=== PATIENT | female | born 1980 | race Hispanic/Latino ===

== ENCOUNTER 2017-02-15 12:54 | Emergency (ER) | payer OTHER ==
[~2017-02-15] VITALS: Ht 170.2 cm; Wt 104.3 kg
[~2017-02-15 12:54] MED LIST: HYDROCODONE/ACE1 TA1 PO; LOMOTIL 0.025 M1 TAB PO; NEXIUM 40MG40 MG PO; ZOFRAN ODT4 MG PO; ZOFRAN ODT4 MG SL
[2017-02-15 14:03] LABS: ABSOLUTE BASOPHIL COUNT 0 /CUMM (0.0-0.2); ABSOLUTE EOSINOPHIL COUNT 0.3 /CUMM (0.0-0.7); ABSOLUTE LYMPH COUNT 3.3 /CUMM (1.2-3.4); ABSOLUTE MONOCYTE COUNT 0.7 /CUMM (0.10-0.60); BASOPHIL % 0.3 % (0.0-2.0); EOSINOPHIL % 2.6 % (0-5); GRANULOCYTE % 61.9 % (42.2-75.2); HEMATOCRIT 41.1 % (37-47); MEAN CORPUSCULAR HGB 28.4 PG (27.0-31.0); MEAN CORPUSCULAR HGB CONC 32.8 G/DL (33.0-37.0); MEAN CORPUSCULAR VOLUME 86.5 FL (81.0-99.0); PLATELET COUNT 306 /CUMM (130-400); RBC DISTRIBUTION WIDTH 14.2 % (11.5-14.5); RED BLOOD CELL CT 4.75 /CUMM (4.20-5.40); WHITE BLOOD CELL COUNT 11.3 /CUMM (4.8-10.8)
--- NOTE | 2017-02-15 14:34 | ED CARDIAC/CP/PALPITATIONS ---
History of Present Illness General Chief Complaint: Chest Pain Stated Complaint: CHEST PAIN Source: patient Exam Limitations: no limitations Vital Signs & Intake/Output Vital Signs & Intake/Output Vital Signs Date Time Temp Pulse Resp B/P Pulse O2 O2 Flow FiO2 Ox Delivery Rate 02/15 1606 Room Air 02/15 1556 97.9 64 16 145/76 96 Room Air 02/15 1515 68 16 150/78 02/15 1337 98.0 83 14 160/97 99 Room Air Allergies Coded Allergies: NO KNOWN ALLERGIES (08/13/14) Reconcile Medications DIPHENOXYLATE HCL/ATROPINE (Lomotil 2.5-0.025 MG Tablet) 1 TAB TAB 1 TAB PO FOUR TIMES A DAY DIARRHEA twenty...[id number] Esomeprazole (Nexium) 40 MG CAP 1 CAP PO PRN GI (Reported) HYDROCODONE/ACETAMINOPHEN (Hydrocodon-Acetaminophen 5-325) 5 MG-325 MG TABLET 1 TAB PO TID PAIN Ondansetron (Zofran Odt) 4 MG ODT 1 TAB PO TID PRN NAUSEA Ondansetron (Zofran Odt) 4 MG TAB.RAPDIS 1 TAB SL Q8 NAUSEA Triage Note: PT TO ED FOR INTERMITTENT CHEST PAIN, COUGH AND JAW PAIN SINCE THURSDAY. REPORTING NOTHING MAKES PAIN BETTER OR WORSE, REPORTING ASSOCIATED SOB, N/V. Triage Nurses Notes Reviewed? yes Onset: Abrupt Duration: gone now, intermittent Timing: multiple episodes today Quality/Severity: moderate Location: substernal Radiation: no radiation : No Patient currently breastfeeds: No HPI: Patient is a 36-year-old female with a past medical history of fibromyalgia currently on amitriptyline who presents emergency with a 72 hour history of intermittent heart palpitations and chest pain that states that the symptoms coming go and the onset is paroxysmal in nature with no pattern states that the symptoms are approximately 1-3 seconds in duration and completely resolved. Patient states that after these symptoms resolve she then has a nonproductive coughing episode Patient states that she has approximately 20 events every day for the past 72 hours. Patient denies any fevers chills arm pain jaw pain nausea vomiting leg swelling diaphoresis shortness of breath hemoptysis Denies any history of PE DVT recent travel recent surgery leg swelling or oral contraceptive use. Denies any illicit drug use or smoking or alcohol use (HARRY THOMAS,CAMILLE) Past History Travel History Traveled to [place] past 21 day No Medical History Any Pertinent Medical History? see below for history Neurological: NONE EENT: NONE Cardiovascular: NONE Respiratory: NONE Gastrointestinal: NONE Hepatic: NONE Renal: NONE Musculoskeletal: FIBROMYALGIA Psychiatric: NONE Endocrine: NONE Blood Disorders: NONE SUPPORT ASSOCIATE/Reproductive: NONE Surgical History Surgical History: non-contributory, N Psychosocial History What is your primary language Wolof Tobacco Use: Never used ETOH Use: denies use Illicit Drug Use: denies illicit drug use Family History Hx Contributory? No (CAMILLE WORRELL) Review of Systems Review of Systems Constitutional: Reports: no symptoms. EENTM: Reports: no symptoms. Respiratory: Reports: see HPI, cough. Cardiovascular: Reports: see HPI, chest pain, palpitations. GI: Reports: no symptoms. Genitourinary: Reports: no symptoms. Musculoskeletal: Reports: no symptoms. Skin: Reports: no symptoms. Neurological/Psychological: Reports: no symptoms. Hematologic/Endocrine: Reports: no symptoms. Immunologic/Allergic: Reports: no symptoms. All Other Systems: Reviewed and Negative (CAMILLE WORRELL) Physical Exam Physical Exam General Appearance: no apparent distress, alert, comfortable Cardiovascular: regular rate/rhythm Comments: Well-developed well-nourished person in no acute distress HEENT: Normal EENT exam, extraocular motion intact, no nystagmus. Pupils equally round and reactive to light and accommodation. Nose is atraumatic. External auditory canal and Tympanic membranes clear. Pharynx normal. No swelling or edema. Neck: Supple, no lymphadenopathy, normal range of motion without pain or tenderness Back: Nontender, no CVA tenderness. Cardiovascular: Regular rate and rhythms no murmurs rubs or gallops, normal JVP Respiratory: Chest nontender. No respiratory distress.breath sounds clear to auscultation bilaterally Abdomen: Soft, nontender nondistended, no appreciable organomegaly. Normal bowel sounds. No ascites Extremity: No edema, no calf tenderness to palpation, normal and equal pulses. Neuro: Alert oriented x3, motor sensory normal, Skin: No appreciable rash on exposed skin, skin is warm and dry. Psych: Mood and affect is normal, memory and judgment is normal. Core Measures ACS in differential dx? Yes Severe Sepsis Present: No Septic Shock Present: No (CAMILLE WORRELL) Progress Differential Diagnosis: AMI, aortic dissection, atrial fibrillation, cholecystitis, CHF/pulm edema, costochondritis, hyperkalemia, hypovolemia, hyperthyroid, hyperventilation, intracranial hemorrhage, musculoskeletal pain, myocarditis, pancreatitis, pericarditis, pneumonia, pneumothorax, PSVT, pulmonary embolism, PUD/GERD, PVCs/PACs, respiratory failure, rib fracture, sepsis, unstable angina, V-fib/V-Tach, WPW syndrome Plan of Care: Orders Procedure Date/time Status Add-on Test (ER Only) 02/15 1449 Active Add-on Test (ER Only) 02/15 1445 Active THYROID STIMULATING HORMONE 02/15 1352 Complete THYROXINE 02/15 1352 Complete MAGNESIUM 02/15 1352 Complete HUMAN BETA HCG SCREEN 02/15 1352 Complete TROPONIN LEVEL 02/15 1338 Complete COMPREHENSIVE METABOLIC PANEL 02/15 1338 Complete CBC WITHOUT DIFFERENTIAL 02/158 Complete EKG 02/15 1255 Active Laboratory Tests 02/15/17 1352: Anion Gap 12, Estimated GFR > 60, BUN/Creatinine Ratio 15.0, Glucose 82, Calcium 9.8, Magnesium 1.9, Total Bilirubin 0.5, AST 20, ALT 33, Alkaline Phosphatase 84 , Troponin I < 0.01, Total Protein 7.4, Albumin 4.2, Globulin 3.2, Albumin/ Globulin Ratio 1.3, TSH 1.560, Thyroxine (T4) 9.6, Total Beta HCG NEGATIVE, CBC w Diff NO MAN DIFF REQ, RBC 4.75, MCV 86.5, MCH 28.4, RDW 14.2, MPV 9.0, Gran % 61.9, Lymphocytes % 29.3, Monocytes % 5.9, Eosinophils % 2.6, Basophils % 0.3, Absolute Granulocytes 7.0 H, Absolute Lymphocytes 3.3, Absolute Monocytes 0.7 H, Absolute Eosinophils 0.3, Absolute Basophils 0, PUBS MCHC 32.8 L Patient currently is in no apparent distress. EKG was showing normal sinus rhythm court recording monitor placed showing sinus rhythm between 70 and 80 bpm. Patient does state that she had multiple episodes of palpitations however sinus rhythm was noted every time on the monitor no tachycardia was noted. Patient was PERC negative essentially ruling out pulmonary embolism. Patient has had 3 days of intermittent palpitations and chest pain and troponin was unremarkable. Patient was strongly advised to follow up with cardiology. Upon discharge patient had no symptoms and agreed with disposition plan and had no questions. (CAMILLE WORRELL) Diagnostic Imaging: Viewed by Me: Radiology Read. Radiology Impression: no acute abnormality, no fracture Initial ED EK BPM NORMAL SINUS RHYTHM Prior EKG: unchanged Comments: PATIENT: LAKSHMI NICHOLSON PRESENT AGE: 36 PATIENT ACCOUNT NO: [id number] : 80 LOCATION: [facility] ORDERING PHYSICIAN: CAMILLE THOMAS SERVICE DATE: 02/15/17 EXAM TYPE: RAD - XRY-CHEST XRAY, PA AND LATERAL EXAMINATION: CHEST 2 VIEWS CLINICAL INFORMATION: Chest pain. COMPARISON: No recent pertinent prior studies are available for comparison. TECHNIQUE: PA and lateral views of the chest were obtained. FINDINGS: The lungs are well expanded. No focal infiltrate, effusion, edema, or pneumothorax. Cardiac and mediastinal silhouettes are within normal limits for technique. No acute bony abnormality seen IMPRESSION: No evidence of acute disease DICTATED BY: ZAINA ASHRAF MD DATE/TIME DICTATED:02/15/171521 DIGITAL ACCOUNT COORDINATOR:JOSE DATE/TIME TRANSCRIBED:02/15/171521 (CAMILLE WORRELL) Departure Departure Disposition: HOME OR SELF CARE Condition: Stable Clinical Impression Primary Impression: Chest pain Secondary Impressions: Palpitations Referrals: CELINE FARAH APRN (PCP/Family) YAZMIN LOPEZ MD Additional Instructions: As discussed continue home medications as directed. If no better by tomorrow follow up and establish a shuttle veneering supervisor Dr. Lopez for further evaluation treatment. If symptoms worsen return to emergency room. Departure Forms: Customer Survey General Discharge Information (CAMILLE WORRELL) PA/STUDIO ENGINEER Co-Sign Statement Statement: ED Attending supervision documentation- [] I saw and evaluated the patient. I have also reviewed all the pertinent lab results and diagnostic results. I agree with the findings and the plan of care as documented in the PA's/STUDIO ENGINEER's documentation. [X] I have reviewed the ED Record and agree with the PA's/STUDIO ENGINEER's documentation. [] Additions or exceptions (if any) to the PAs/STUDIO ENGINEER's note and plan are summarized below: [] (ARCENIO RAI,ION [place]) Critical Care Note Critical Care Note Critical Care Time: non-applicable (CAMILLE WORRELL)
--- NOTE | 2017-02-15 15:26 | RADIOLOGY REPORT ---
EXAMINATION: CHEST 2 VIEWS CLINICAL INFORMATION: Chest pain. COMPARISON: No recent pertinent prior studies are available for comparison. TECHNIQUE: PA and lateral views of the chest were obtained. FINDINGS: The lungs are well expanded. No focal infiltrate, effusion, edema, or pneumothorax. Cardiac and mediastinal silhouettes are within normal limits for technique. No acute bony abnormality seen IMPRESSION: No evidence of acute disease
[2017-02-15 15:56] VITALS: BP 145/76
[2017-04-08] MEDS ORDERED: ZYRTEC10 M3 PO (10:18)
== END 2017-02-15 16:28 ==
LOC: ERH 12:54
PROVIDERS: Emergency Medicine
DX: R07.9 Chest pain, unspecified (principal); R00.2 Palpitations
CPT/HCPCS: 93005; 93010

== ENCOUNTER → 2017-04-09 | Day surgery (SDC) | payer OTHER ==
[~2017-04-09] VITALS: Ht 170.2 cm; Wt 108.0 kg
[~2017-04-09] MED LIST changes: +ZYRTEC10 M3 PO
--- NOTE | 2017-04-10 07:02 | ULTRASOUND REPORT ---
EXAMINATION: US INTRAOPERATIVE PELVIS CLINICAL INFORMATION: Ultrasound was provided by the technologist during cryoablation COMPARISON: None TECHNIQUE: Transabdominal ultrasound was performed by the radiographer technologist. The radiologist was not present for contemporaneous supervision and interpretation. FINDINGS: A total of 5 transabdominal images are provided for evaluation. IMPRESSION: Imaging was provided by the radiographer technologist in the operating room.
--- NOTE | 2017-04-14 19:13 | Operative Report ---
Operative/Inv Procedure Report Surgery Date: 04/09/17 Name of Procedure: Dilatation and curettage cryoablation uterus under ultrasound guidance Pre-Operative Diagnosis: Metromenorrhagia Post-Operative Diagnosis: Same Estimated Blood Loss: less than 50ml Surgeon/Gas Adjuster: ALEJANDRO CLARKE MD Anesthesia: moderate sedation Operative/Procedure Note Note: Procedure note patient was taken the operating room placed on position after adequate anesthesia patient placed in dorsolithotomy position the vagina from dorsal fashion bladder was catheterized this point ultrasound was performed under direct visualization CO2 tenaculum placed on the Intralipid cervix gentle downward traction cervix is dilated 29 Hegar to allow for the insertion sharp curettage sharp curettage endometrial lining was performed specimen was sent to pathology a Kevorkian was used for a sharp curettage and cervical lining patient tolerated that well I this point the cryoprobe under direct visualization was inserted into the uterus 8 minutes on each side cryoablation was performed hemostasis was apparent probe was heated and removed at which point all instruments removed from vagina the Reed was removed the bladder the patient was returned spine position she was awakened from anesthesia and transferred recovery room awake alert with counts correct Findings: Normal size uterus no adnexal masses
== END ==
LOC: STS 03:12
DX: N92.1 Excessive and frequent menstruation with irregular cycle (principal); M79.7 Fibromyalgia; E66.9 Obesity, unspecified
CPT/HCPCS: 76998; 81001; 81025; 88305; J2250